=== PATIENT | female | born 1950 | race Caucasian/White ===

== ENCOUNTER 2024-11-25 11:54 | Emergency (ER) | payer OTHER ==
[~2024-11-25] VITALS: Ht 162.6 cm; Wt 58.0 kg
[2024-11-25 14:13] VITALS: O2SAT 99
[2024-11-25] MEDS: ETOMIDATE 2MG/ML 10ML VIAL IV ONE (14:22)
[2024-11-25 15:10] VITALS: BP 135/70; PULSE 75; RESP 15; TEMP 36.9; O2SAT 99
== END 2024-11-25 15:17 | disposition home or self-care (01) ==
LOC: ER 12:09
DX: S43.014A Anterior dislocation of right humerus, initial encounter (principal); S00.83XA Contusion of other part of head, initial encounter; I48.91 Unspecified atrial fibrillation; I10 Essential (primary) hypertension; W18.30XA Fall on same level, unspecified, initial encounter; Y93.89 Activity, other specified; Y92.89 Other specified places as the place of occurrence of the external cause; Y99.8 Other external cause status
CPT/HCPCS: 73030; 73562; 70450; 23650; 99152; 99291; J3490; Z7610 ×2; 99284